=== PATIENT | female | born 1960 | race Caucasian/White ===

== ENCOUNTER 2019-03-25 23:49 | Emergency (ER) | payer BC ==
[~2019-03-25] VITALS: Ht 160 cm; Wt 90.9 kg
[2019-03-25 23:54] VITALS: Ht 160 cm; Wt 90.9 kg
[2019-03-25] MEDS ORDERED: TOPROL XL50 MG PO (23:55)
[2019-03-25] MEDS ORDERED: LISINOPRIL20 MG PO (23:55)
[2019-03-25] MEDS ORDERED: LEXAPRO20 MG PO (23:56)
[2019-03-25] MEDS ORDERED: BAYER CHEWABLE81 MG PO (23:56)
[2019-03-25] MEDS ORDERED: FISH OIL (23:56)
[2019-03-25] MEDS ORDERED: XANAX1 MG PO (23:56)
[2019-03-26 00:25] LABS: HEMATOCRIT 39.1 % (36.0-48.0); HEMOGLOBIN 13.4 g/dL (12-16); MCH 30.8 pg (26.0-34.0); MCHC 34.3 g/dL (31.0-37.0); MCV 89.9 fL (80.0-100.0); MEAN PLATELET VOLUME 10.1 fL (7.4-10.4); PLATELET COUNT 380 10x3/uL (130-400); RBC 4.35 10x6/uL (4.00-5.40); RDW 13.8 % (11.5-14.5); WBC 22.5 10x3/uL (4.8-10.8)
[2019-03-26 00:47] LABS: ALBUMIN 2.7 g/dL (3.4-5.0); ALKALINE PHOSPHATASE 142 U/L (46-116); ALT (SGPT) 38 U/L (10-68); BILIRUBIN - TOTAL 0.28 mg/dL (0.2-1.3); CALC OSMOLALITY 270 mosm/kg (275-300); CALCIUM 9.2 mg/dL (8.5-10.1); CARBON DIOXIDE 24.5 mmol/L (21.0-32.0); CHLORIDE - SERUM 97 mmol/L (98-107); CREATININE - SERUM 0.6 mg/dL (0.6-1.3); GLUCOSE 175 mg/dL (74-106); PROTEIN - SERUM 7.6 g/dL (6.4-8.2); SODIUM 134 mmol/L (136-145); UREA NITROGEN 9 mg/dL (7-18); eGFR NON AFRICAN AMERICAN > 90 mL/min (90-120)
[2019-03-26 00:53] LABS: EOSINOPHILS 1 % (0-7); LYMPHOCYTES 19 % (15-50); MONOCYTES 5 % (2-11); NEUTROPHILS 71 % (40-80); PLATELET ESTIMATE NORMAL; PLATELET MORPHOLOGY GIANT PLTS PRESENT
[2019-03-26] MEDS ORDERED: TESSALON PERLE100 MG PO (03:49)
[2019-03-26] MEDS ORDERED: ALBUTEROL SULF8.5 GM INH (03:49)
[2019-03-26] MEDS ORDERED: LEVAQUIN750 MG PO (03:49)
[2019-03-26] MEDS ORDERED: CILOXAN5 ML RIGHT EYE (03:51)
[2019-03-26 04:12] VITALS: BP 139/55
== END 2019-03-26 04:13 | disposition home or self-care (01) ==
LOC: D.ER 23:49
PROVIDERS: Family Medicine
DX: J20.9 Acute bronchitis, unspecified (principal); H10.31 Unspecified acute conjunctivitis, right eye; F17.200 Nicotine dependence, unspecified, uncomplicated

== ENCOUNTER 2020-07-17 19:36 | Emergency (ER) | payer BC ==
[~2020-07-17] VITALS: Ht 160 cm; Wt 103.6 kg
[~2020-07-17 19:36] MED LIST: ALBUTEROL SULF8.5 GM INH; BAYER CHEWABLE81 MG PO; CILOXAN5 ML RIGHT EYE; FISH OIL; LEVAQUIN750 MG PO; LEXAPRO20 MG PO; LISINOPRIL20 MG PO; TESSALON PERLE100 MG PO; TOPROL XL50 MG PO; XANAX1 MG PO
[2020-07-17 19:46] VITALS: Ht 160 cm; Wt 103.6 kg
[2020-07-17 20:58] LABS: BASOPHILS 0.4 % (0-2); HEMATOCRIT 41.4 % (36.0-48.0); HEMOGLOBIN 13.6 g/dL (12-16); IMMATURE GRANULOCYTES 0.2 % (0-5); LYMPHOCYTES 21.7 % (15-50); MCH 30.1 pg (26.0-34.0); MCHC 32.9 g/dL (31.0-37.0); MCV 91.6 fL (80.0-100.0); MEAN PLATELET VOLUME 10.7 fL (7.4-10.4); MONOCYTES 6.6 % (2-11); NEUTROPHILS 68.1 % (40-80); RBC 4.52 10x6/uL (4.00-5.40); RDW 13.7 % (11.5-14.5); WBC 10.6 10x3/uL (4.8-10.8)
[2020-07-17 21:09] LABS: CALC OSMOLALITY 277 mosm/kg (275-300); CALCIUM 9.3 mg/dL (8.5-10.1); CARBON DIOXIDE 24.5 mmol/L (21.0-32.0); CHLORIDE - SERUM 102 mmol/L (98-107); CREATININE - SERUM 0.8 mg/dL (0.6-1.3); GLUCOSE 187 mg/dL (74-106); POTASSIUM - SERUM 3.9 mmol/L (3.5-5.1); SODIUM 136 mmol/L (136-145); UREA NITROGEN 15 mg/dL (7-18); eGFR NON AFRICAN AMERICAN 77 mL/min (90-120)
[2020-07-17 21:11] LABS: PLATELET COUNT 299 10x3/uL (130-400)
[2020-07-17 21:15] LABS: ALBUMIN 3.8 g/dL (3.4-5.0); ALKALINE PHOSPHATASE 131 U/L (30-120); ALT (SGPT) 99 U/L (10-68); BILIRUBIN - TOTAL 0.63 mg/dL (0.2-1.3); PROTEIN - SERUM 7.2 g/dL (6.4-8.2)
[2020-07-17 22:21] LABS: BILIRUBIN NEGATIVE (NEGATIVE); GLUCOSE NEGATIVE (NEGATIVE); KETONE NEGATIVE (NEGATIVE); NITRITE NEGATIVE (NEGATIVE); UROBILINOGEN NORMAL (NORMAL)
[2020-07-17] MEDS ORDERED: DICLOFENAC SODI50 MG PO (22:56)
[2020-07-17 23:14] VITALS: BP 128/55
== END 2020-07-17 23:16 | disposition home or self-care (01) ==
LOC: D.ER 19:36
PROVIDERS: Family Medicine
DX: S16.1XXA Strain of muscle, fascia and tendon at neck level, initial encounter (principal); S20.211A Contusion of right front wall of thorax, initial encounter; S09.90XA Unspecified injury of head, initial encounter; S39.012A Strain of muscle, fascia and tendon of lower back, initial encounter; S63.501A Unspecified sprain of right wrist, initial encounter; V59.9XXA Occupant (driver) (passenger) of pick-up truck or van injured in unspecified traffic accident, initial encounter; R79.89 Other specified abnormal findings of blood chemistry; I10 Essential (primary) hypertension; J45.909 Unspecified asthma, uncomplicated